=== PATIENT | female | born 1970 | race American Indian/Alaskan Native ===

== ENCOUNTER 2021-06-15 08:23 | Emergency (ER) | payer BC ==
[2021-06-15 08:34] VITALS: BP 221/129
--- NOTE | 2021-06-15 09:56 | XRay Report ---
XR ankle 2V LT INDICATION / CLINICAL INFORMATION: injury. COMPARISON: None available. FINDINGS: BONES/JOINT(S): No acute fracture or subluxation. No significant degenerative changes. SOFT TISSUES: Soft tissue swelling in the lateral ankle ADDITIONAL FINDINGS: None. Signer Name: Jefe Khanna MD Signed: 06/15/2021 9:51 AM Workstation Name: [id number]
--- NOTE | 2021-06-15 09:56 | XRay Report ---
XR tibia fibula 2V LT INDICATION / CLINICAL INFORMATION: injury. COMPARISON: None available. FINDINGS: BONES/JOINT(S): No acute fracture or subluxation. No significant degenerative changes. SOFT TISSUES: Soft tissue swelling lateral ankle. ADDITIONAL FINDINGS: None. Signer Name: Jefe Khanna MD Signed: 06/15/2021 9:51 AM Workstation Name: [id number]
--- NOTE | 2021-06-15 09:59 | XRay Report ---
. XR knee 1-2V RT INDICATION / CLINICAL INFORMATION: injury. COMPARISON: None available. FINDINGS: BONES/JOINT(S): No acute fracture or subluxation. No significant degenerative changes. SOFT TISSUES: No significant abnormality. ADDITIONAL FINDINGS: None. Signer Name: Jefe Khanna MD Signed: 06/15/2021 9:54 AM Workstation Name: [id number]
--- NOTE | 2021-06-15 10:43 | Emergency Department Report ---
ED Fall HPI - General Chief Complaint: Fall Stated Complaint: FALL Time Seen by Provider: 06/15/21 10:06 Source: patient Mode of arrival: Ambulatory - History of Present Illness Initial Comments: 50-year-old -[place] female presents to the emergency room stating she fell going down about 4 steps this morning at approximately 6:15 AM. Patient comes in reporting she is injured to her left ankle and a abrasion on her right knee. Patient denies any head injury no loss of consciousness. It was noted that patient elevated blood pressure states she has a history of hypertension but has not been on blood pressure medication in approximately 5 years. Patient states that she is followed by [facility] but has not seen them in quite a while. She does have an allergy to penicillin and currently takes no medications on a daily basis. MD Complaint: fall Time: 06:15 Fall From: down stairs (#) (4) When Fall Occurred: 1 hour [employer], just prior to arrival Fall Witnessed: no Place Fall Occurred: home Loss of Consciousness: none Prolonged Down Time?: no - Related Data Previous Rx's Medication Instructions Recorded Last Taken Type amLODIPine 5 mg PO DAILY #30 tab 06/15/21 Unknown Rx traMADoL [Ultram 50 MG tab] 50 mg PO Q6HR PRN #15 tablet 06/15/21 Unknown Rx Allergies Allergy/AdvReac Type Severity Reaction Status Date / Time Penicillins Allergy Hives Verified 06/15/21 08:25 ED Review of Systems ROS: Stated complaint: FALL Other details as noted in HPI Comment: All other systems reviewed and negative ED Past Medical Hx - Past Medical History Previous Medical History?: Yes Hx Hypertension: Yes - Surgical History Past Surgical History?: No - Medications Home Medications: Home Medications Medication Instructions Recorded Confirmed Last Taken Type amLODIPine 5 mg PO DAILY #30 tab 06/15/21 Unknown Rx traMADoL [Ultram 50 MG tab] 50 mg PO Q6HR PRN #15 tablet 06/15/21 Unknown Rx ED Physical Exam - General Limitations: No Limitations General appearance: alert, in no apparent distress - Head Head exam: Present: atraumatic, normocephalic - Eye Eye exam: Present: normal appearance - ENT ENT exam: Present: mucous membranes moist, normal external ear exam - Neck Neck exam: Present: normal inspection, full ROM - Respiratory Respiratory exam: Absent: respiratory distress, accessory muscle use - Cardiovascular Cardiovascular Exam: Present: regular rate - Expanded Lower Extremity Exam Left Hip exam: Present: normal inspection Upper Leg exam: Present: normal inspection Knee exam: Present: normal inspection Lower Leg exam: Present: normal inspection, tenderness, swelling Ankle exam: Present: tenderness, swelling Foot/Toe exam: Present: normal inspection Neuro vascular tendon exam: Present: no vascular compromise Right Hip exam: Present: full ROM Upper Leg exam: Present: normal inspection Knee exam: Present: full ROM, abrasion Lower Leg exam: Present: normal inspection Ankle exam: Present: normal inspection Foot/Toe exam: Present: normal inspection Neuro vascular tendon exam: Present: no vascular compromise - Neurological Exam Neurological exam: Present: alert, oriented X3 - Psychiatric Psychiatric exam: Present: normal affect, normal mood - Skin Skin exam: Present: warm, dry, intact, normal color. 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 COMPARISON: None available. FINDINGS: BONES/JOINT(S): No acute fracture or subluxation. No significant degenerative changes. SOFT TISSUES: Soft tissue swelling lateral ankle. ADDITIONAL FINDINGS: None. Signer Name: Jefe Khanna MD Signed: 06/15/2021 9:51 AM Workstation Name: [id number] Transcribed By: FLAKITO Dictated By: Jefe Khanna MD Electronically Authenticated By: Jefe Khanna MD Signed Date/Time: 06/15/21950 DD/ 0 TD/TT: Ordering Physician: HAYLEY APPIAH Date of Service: 06/15/21 Procedure(s): XR knee 1-2V RT Accession Number(s): [id number] cc: HAYLEY APPIAH Fluoro Time In Minutes: . XR knee 1-2V RT INDICATION / CLINICAL INFORMATION: injury. COMPARISON: None available. FINDINGS: BONES/JOINT(S): No acute fracture or subluxation. No significant degenerative changes. SOFT TISSUES: No significant abnormality. ADDITIONAL FINDINGS: None. 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 COMPARISON: None available. FINDINGS: BONES/JOINT(S): No acute fracture or subluxation. No significant degenerative changes. SOFT TISSUES: Soft tissue swelling in the lateral ankle ADDITIONAL FINDINGS: None. Signer Name: Jefe Khanna MD Signed: 06/15/2021 9:51 AM Workstation Name: [id number] Transcribed By: FLAKITO Dictated By: Jefe Khanna MD Electronically Authenticated By: Jefe Khanna MD Signed Date/Time: 06/15/21950 DD/ 0 TD/TT: - Medical Decision Making 50-year-old -[place] female presents to the emergency room stating she fell going down about 4 steps this morning at approximately 6:15 AM. Patient comes in reporting she is injured to her left ankle and a abrasion on her right knee. Patient denies any head injury no loss of consciousness. It was noted that patient elevated blood pressure states she has a history of hypertension but has not been on blood pressure medication in approximately 5 years. Patient states that she is followed by [facility] but has not seen them in quite a while. She does have an allergy to penicillin and currently takes no medications on a daily basis. All x-rays are negative for any acute fractures or dislocations. It does show some swelling. Will clean up right knee with normal saline Betadine and a bandage. We will place patient in a right ankle stirrup for right ankle sprain place her on crutches and referral to orthopedics. We will place patient on amlodipine 5 mg for elevated blood pressure. Instructed patient she needs to follow-up with her primary care provider. Critical care attestation.: If time is entered above; I have spent that time in minutes in the direct care o f this critically ill patient, excluding procedure time. ED Disposition Clinical Impression: Fall with injury, Sprain of left ankle, Hypertension Disposition: - TO HOME OR SELFCARE Is pt being admited?: No Does the pt Need Aspirin: No Condition: Stable Instructions: Hypertension (ED), Ankle Sprain, [id number], How to Use a Stirrup Ankle Brace, [id number], Hypertension, Adult, Kefz-on-Agig, RICE Therapy for Routine Care of Injuries, [id number] Additional Instructions: X-rays were all negative for any acute fractures or dislocation. Do have a left ankle sprain and a right knee abrasion. I like for you to keep it clean with normal saline [id number] triple antibiotics. Let it get to air when you are at home. Use your ankle stirrup and crutches. Follow-up with your primary care provider regards to your hypertension. Start taking medication today and have an appointment with her sometime this week to recheck blood pressure. Prescriptions: amLODIPine 5 mg PO DAILY #30 tab traMADoL [Ultram 50 MG tab] 50 mg PO Q6HR PRN #15 tablet PRN Reason: Pain Referrals: DANIEL SIMPSON [Other] - 3-5 Days KYLE DANIELLE MD [Staff Physician] - 3-5 Days [facility] [Provider Group] - 3-5 Days Forms: Work/School Release Form(ED) Time of Disposition: 10:48
== END 2021-06-15 11:41 | disposition home or self-care (01) ==
LOC: ED 08:23
DX: S93.402A Sprain of unspecified ligament of left ankle, initial encounter (principal); I10 Essential (primary) hypertension; Z88.0 Allergy status to penicillin; W19.XXXA Unspecified fall, initial encounter; Y93.89 Activity, other specified; Y92.89 Other specified places as the place of occurrence of the external cause; Y99.8 Other external cause status
CPT/HCPCS: 99283

== ENCOUNTER 2021-07-28 18:51 | Emergency (ER) | payer BC ==
[2021-07-28 20:14] VITALS: BP 128/79
--- NOTE | 2021-07-28 20:24 | Event Note ---
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 Patient to negative Covid test this week however symptoms remain. Is are exacerbated by p.o. intake cough is productive yellow thick. Patient is not COVID vaccinated. Symptoms are exacerbated by activity. Symptoms are relieved by nothing tried. Denies other medical history states last menstrual period 1 year ago. This initial assessment/diagnostic orders/clinical plan/treatment(s) is/are subject to change based on patients health status, clinical progression and re- assessment by fellow clinical providers in the ED. Further treatment and workup at subsequent clinical providers discretion. Patient/guardian urged not to elope from the ED as their condition may be serious if not clinically assessed and managed. Initial orders include: cmp, cbc, lipase, cxr, ua, hcg
[2021-07-28 20:45] LABS: Basophils # (Auto) 0.1 K/mm3 (0.0-0.1); Basophils % (Auto) 0.7 % (0.0-1.8); Eosinophils # (Auto) 0.1 K/mm3 (0.0-0.4); Eosinophils % (Auto) 0.8 % (0.0-4.3); Hematocrit 34.3 % (30.3-42.9); Hemoglobin 11.1 gm/dl (10.1-14.3); Lymphocytes # (Auto) 0.8 K/mm3 (1.2-5.4); Mean Corpuscular HGB Conc 32 % (30-34); Mean Corpuscular Volume 75 fl (79-97); Monocytes # (Auto) 0.7 K/mm3 (0.0-0.8); Platelet Count 423 K/mm3 (140-440); Red Blood Count 4.59 M/mm3 (3.65-5.03); Red Cell Distribution Width 17.5 % (13.2-15.2)
[2021-07-28 21:06] LABS: Alanine Aminotransferase 40 units/L (7-56); Albumin 4.2 g/dL (3.9-5); BUN/Creatinine Ratio 13; Blood Urea Nitrogen 12 mg/dL (7-17); Calcium 9.6 mg/dL (8.4-10.2); Hemolysis Index 3
[2021-07-28 22:15] LABS: Bilirubin,Urine NEG (Negative); Blood,Urine LG (Negative); Color,Urine Amber (Yellow); HCG Qualitative,Urine Negative (Negative); Mucus,Urine 1+ /HPF
== END 2021-07-28 22:00 | disposition left against medical advice (07) ==
LOC: ED 18:51
DX: R10.9 Unspecified abdominal pain (principal); Z53.21 Procedure and treatment not carried out due to patient leaving prior to being seen by health care provider
CPT/HCPCS: 36415; 80053; 81001; 81025; 83690; 85025